=== PATIENT | female | born 1965 | race Caucasian/White ===

== ENCOUNTER 2019-02-14 19:54 | Emergency (ER) | payer MEDICARE, MEDICAID ==
[~2019-02-14] VITALS: Ht 165.1 cm; Wt 118.6 kg
[~2019-02-14 19:54] MED LIST: ALPR-624 PO; ATEN-169 PO; CELE-193 PO; CLON-527 PO; CLON-529 PO; CYCL-1 PO; DULO-31 PO; FLUO20CA39 PO; LEVO175T38 PO; MIN5C PO; NITR0.4T51 SL; NORCO10T PO; PANT40TA39 PO; PRAM0.252 PO; PROM25TA14 PO; ZOLP12.531 PO
[2019-02-14] MEDS ORDERED: ketorolac trometh inj. 60 MG/2 ML VIAL IM ONE (20:30)
[2019-02-14] MEDS ORDERED: HYDROcodone/acetaminophen 10/325mg tab PO ONE (21:55)
[2019-02-14] MEDS ORDERED: DICL50TA8 PO (22:12)
[2019-02-14] MEDS ORDERED: CYCL-1 PO (22:12)
[2019-02-14 22:13] VITALS: BP 113/97
== END 2019-02-14 22:31 | disposition home or self-care (01) ==
LOC: ER 19:55
DX: M54.5 Low back pain (principal); G89.29 Other chronic pain; Z88.0 Allergy status to penicillin; Z88.2 Allergy status to sulfonamides; Z88.5 Allergy status to narcotic agent; Z88.8 Allergy status to other drugs, medicaments and biological substances; Z79.899 Other long term (current) drug therapy
CPT/HCPCS: 72100; 72131; 96372; 99284; J1885

== ENCOUNTER 2019-12-16 19:16 | Emergency (ER) | payer MEDICARE, MEDICAID ==
[~2019-12-16] VITALS: Ht 165.1 cm; Wt 130.0 kg
[~2019-12-16 19:16] MED LIST changes: +DICL50TA8 PO
[2019-12-16 19:20] VITALS: BP 137/59
[2019-12-16] MEDS ORDERED: traMADol 50MG tablet PO ONE (20:30)
[2019-12-16] MEDS ORDERED: TRAM50TA2 PO (21:10)
== END 2019-12-16 21:02 | disposition home or self-care (01) ==
LOC: ER 19:17
DX: M25.562 Pain in left knee (principal); G89.29 Other chronic pain; Z88.0 Allergy status to penicillin; Z88.5 Allergy status to narcotic agent; Z88.8 Allergy status to other drugs, medicaments and biological substances; Z79.899 Other long term (current) drug therapy
CPT/HCPCS: 29505; 73564; 99284

== ENCOUNTER 2024-01-07 10:13 | Outpatient (CLI) | payer MEDICARE, MEDICAID ==
[~2024-01-07] VITALS: Ht 165.1 cm; Wt 127.0 kg
[2024-01-07] MEDS: albuterol 2.5 MG/3 ML nebule NEB ONE (11:07)
[2024-01-07 11:08] VITALS: PULSE 102; RESP 18; O2SAT 90
[2024-01-07 11:24] VITALS: PULSE 97; RESP 18
== END 2024-01-07 23:59 | disposition home or self-care (01) ==
LOC: RT 10:13
PROVIDERS: ATTEND Internal Medicine
DX: J44.9 Chronic obstructive pulmonary disease, unspecified (principal)
CPT/HCPCS: 94060; 94760; J7030; Z7610